=== PATIENT | male | born 1970 | race African-American/Black ===

== ENCOUNTER 2017-10-31 09:29 | Inpatient (IN) | payer OTHER ==
[~2017-10-31] VITALS: Ht 182.9 cm; Wt 105.4 kg
--- NOTE | ~2017-10-31 | HC ---
[facility] [place] [address] CONSULTATION Name: RICARDOЮЛИЯ Cueva Room #: 512-P [facility] IN M.R.#: [id number] Admission: 11/04/17 Attend Phys: Roosevelt Rowley MD Discharge: 12/04/17 Date of : 74 Report #: [id number] THIS REPORT FOR: //name// CC: Liz Rowley DATE OF SERVICE: 11/25/2017 HISTORY OF PRESENT ILLNESS: This is a 47-year-old male patient who was evaluated by me because of the CT scan finding. 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 He was transferred to [facility]. I reviewed those records. There is huge records there. The best I can tell in this patient is that they did thrombectomy and they wanted to start the patient on Coumadin on 23 of November. I tried to find out from the records and I tried to ask the patient whether atrial fibrillation was documented. Family does not know that, but the record does indicate that there was a new onset of atrial fibrillation. It looks like that they may have decided to wait for a month before starting the anticoagulation. His Coumadin was started. His INR is being done daily. His PT is only 10.5 and INR is 1. He had an imaging study. It is not certain that he was weak. The family said he was not doing well over the weekend and in fact is doing somewhat better but the staff tell me he may not have been that well. REVIEW OF SYSTEMS: Positive for hypertension as mentioned above, I had seen this patient when he came to Emergency Room and I reviewed those records in detail. He does have a history of hypertension. He was seen as far as back in 2011 for another stroke that time. This was his relevant 14-point review of system. PAST MEDICAL HISTORY: Positive for basilar artery thrombosis. SOCIAL HISTORY: He is and I talked to his . PHYSICAL EXAMINATION: NEUROLOGICAL: His examinations indicate he is alert. He is responsive. He can follow commands. His most prominent neurological examination is cerebellar sign on the right side. LUNGS: He does not appear to be in any respiratory difficulty. VITAL SIGNS: His blood pressure is 141/94, respirations 16, pulse 74 and temperature is 97.5. RADIOLOGICAL DATA: His CT was reviewed and it showed no hemorrhage but a large stroke. IMPRESSION AND RECOMMENDATIONS: This patient has a large right cerebellar stroke. It is cardioembolic. He needs anticoagulation if there is a documented [facility] [address] [place] [address] CONSULTATION Name: ЮЛИЯ SILVA V Room #: 512-P [facility]#: [id number] Admission: 11/04/17 Attend Phys: Roosevelt Rowley MD Discharge: 12/04/17 Date of : 74 Report #: [id number] atrial fibrillation. I do not have all his records but that is the recommendations of . There is no strict contraindication for anticoagulation. He is predisposed to bleed into his cerebellum. That is catastrophic and typically . [facility] people wanted him to be without anticoagulation for a month and hence we started on November 23, it has been done. I discussed that aspect with the family. From my perspective, I think we can continue to follow [facility] recommendation. I will suggest an MRI to make sure there is no finding appeared. This patient is on a very high risk of having another stroke if he is without anticoagulation and he is on some risk of having hemorrhagic cerebrovascular accident and it does not matter when anticoagulation is started. That aspect has been discussed with the family and the patient. He is willing to take that risk and from my perspective, close monitoring of PT and INR should be done, otherwise there does not appear to be any contraindication from anticoagulation, although it is a high-risk strategy but without anticoagulation. It is also high risk because he already had 2 strokes and he is predisposed for cardioembolic strokes. <ELECTRONICALLY SIGNED> By: Oemro Palomino MD 12/05/17 [id number] Omero Palomino MD /nt
--- NOTE | ~2017-10-31 | H ---
[facility] [place] [address] HISTORY AND PHYSICAL Name: ЮЛИЯ SILVA V Room #: 512-P ADM IN M.R.#: [id number] Admission: 11/04/17 Attend Phys: Roosevelt Rowley MD Discharge: Date of : 74 Report #: [id number] THIS REPORT FOR: //name// CC: Liz Rowley DATE OF SERVICE: 11/04/2017 POSTADMISSION PHYSICIAN EVALUATION HISTORY OF PRESENT ILLNESS: The patient is a 47-year-old -Slovenian male, admitted from [facility] with past history of hypertension, hyperlipidemia, prior CVA, coronary artery disease with prior cardiac stenting. He was admitted to [facility]. He had left-sided weakness, expressive aphasia, and underwent thrombectomy. He was originally noted to have slurred speech and right-sided weakness on 10/27/2017. MRI revealed interval progression of acute to early subacute bilateral cerebellar infarct and persistent small acute to subacute pontine infarcts. There was some increased associated cerebellar mass effect without herniation or hydrocephalus, development of trace subarachnoid hemorrhage along the cingulate sulcus, and multiple tiny old right cerebellar infarcts. The patient was felt to be ready for transfer for acute in-hospital inpatient rehabilitation. He has now been admitted to the acute inpatient rehabilitation [place]. Please see the full admission note dictation from the nurse practitioner, Luzmaria Bishop. This includes past medical history, habits, social history, and allergies. MEDICATIONS: Please see the medication listing. This includes vitamins, herbals, and supplements. PHYSICAL EXAMINATION: GENERAL: A 47-year-old -Slovenian male in no obvious distress, sleepy, will arouse. VITAL SIGNS: Temperature 97.9, pulse 84, respirations 20, blood pressure 106/74. No distress. HEENT: Normocephalic. There is moderate dysarthria. CHEST: Sounded clear to auscultation. CARDIAC: Regular rate and rhythm. ABDOMEN: Bowel sounds positive, nontender. GENITOURINARY AND RECTAL: Deferred. He does have some left-sided weakness more than the right side, probably a grade 3+ to 4-/5. He has some ataxia in upper and lower extremities. ASSESSMENT: 1. Ycztg-za-zflzgsow bilateral cerebellar infarcts. [facility] [address] [place] [address] HISTORY AND PHYSICAL Name: ЮЛИЯ SILVA V Room #: 512-P [facility] IN [facility].#: [id number] Admission: 11/04/17 Attend Phys: Roosevelt Rowley MD Discharge: Date of : 74 Report #: [id number] 2. Intracranial right vertebral artery occlusion, status post thrombectomy. 3. History of old right cerebellar infarcts with left-sided weakness. 4. Moderate dysarthria. 5. Hqum-mb-dxxkqazu dysphagia. 6. Atrial fibrillation. 7. Thrombocytopenia. 8. Depression. 9. Benign prostatic hypertrophy. 10. Hyperlipidemia. 11. Hypertension. PLAN: The patient has been admitted for acute in-hospital inpatient rehabilitation. Hospitalist services assisting regarding medical management. From a postadmission physician evaluation perspective, there are no relevant changes since the preadmission screening. Please see the above review of prior and current medical and functional conditions and comorbidities. Please see the patient's previous and current functional status. He has been max assist for basic transfers and short distance ambulation has been max assist. As far as risk of complications, he has the multiple noted above medical comorbidities. Initial plan of care involves the interdisciplinary acute inpatient rehabilitation program with the goal of maximizing his functional independence so that he can hopefully return back to his prior living situation. Prognosis is reasonably good with estimated length of stay probably at least 10 days to 2 weeks and likely longer as warranted. Potential barriers would include his multiple medical comorbidities and decreased functional status. <ELECTRONICALLY SIGNED> By: Roosevelt Rowley MD 11/18/17 0959 [id number] Roosevelt Rowley MD /nt
--- NOTE | ~2017-10-31 | PLAN ---
[facility] [address] [address] REHAB UNIT PLAN OF CARE Name: ЮЛИЯ SILVA V Room #: 512-P [facility] IN M.R.#: [id number] Admission: 11/04/17 Attend Phys: Roosevelt Rowley MD Discharge: Date of : 74 Report #: [id number] THIS REPORT FOR: //name// CC: Liz Rowley DATE OF SERVICE: 11/07/2017 PROGRESS NOTE AND OVERALL PLAN OF CARE SUBJECTIVE: He is in no distress. Last recorded temperature 36.7, pulse 95, respirations 18, blood pressure 114/72. No focal calf swelling. Transfers are min assist with gait max assist of 225 feet front-wheeled walker. He has auqr-md-xdwphoei comprehensive deficits with hvjrmged-hv-filcee expressive deficits, tudf-sl-rkojmzpn dysphagia. He is on mechanical soft, thin liquid diet. Upper body dressing is min assist, lower body dressing is max assist. He does have some dysarthria. ASSESSMENT: 1. Bilateral cerebellar cerebrovascular accident. 2. Intracranial right vertebral artery occlusion, status post thrombectomy. 3. History of right cerebellar cerebrovascular accident with left-sided weakness. 4. Moderate dysarthria. 5. Xorc-fs-btmnpwhf dysphagia. 6. Severe expressive aphasia. 7. Oydkkonx-qp-dtocnd memory and cognitive deficits. 8. Diplopia, right eye. 9. Atrial fibrillation. 10. Folic acid deficiency. 11. Depression. 12. Benign prostatic hypertrophy. 13. Hyperlipidemia. 14. Hypertension. 15. Acute renal insufficiency. PLAN: The overall plan of care is based on the preadmission screen, post-admission physician evaluation and information garnered from therapy assessments. 1. Estimated length of stay is going to be probably at least 2-3 weeks, likely longer pending progress. 2. Medical prognosis is reasonably good. 3. Anticipated interventions includes the interdisciplinary acute inpatient rehabilitation program with PT, OT, speech rehab nursing assisting regarding medication management, skin care prophylaxis, bowel and bladder issues and nursing education. transcription manager will be involved as well as the [address] [address] REHAB UNIT PLAN OF CARE Name: ЮЛИЯ SILVA V Room #: 512-P [facility] IN .R.#: [id number] Admission: 11/04/17 Attend Phys: Roosevelt Rowley MD Discharge: Date of : 74 Report #: [id number] interdisciplinary acute rehabilitation team and the consulting physicians. 4. Anticipated functional outcomes would be for the patient to become modified independent ideally improving with walker ambulation, ADLs, comprehension, communication. 5. Discharge destination is back to the home setting. He apparently was living between his sister's house and his 's house. 6. Expected therapy by discipline includes PT, OT and speech 1 hour per day each five days a week throughout the duration of the acute inpatient rehabilitation stay. <ELECTRONICALLY SIGNED> By: Roosevelt Rowley MD 11/18/17 0959 [id number] 1233 Roosevelt Rowley MD /jodi
--- NOTE | ~2017-10-31 | HC ---
[facility] [place] [address] CONSULTATION Name: ЮЛИЯ SILVA V Room #: 512-P [facility] IN M.R.#: [id number] Admission: 11/04/17 Attend Phys: Roosevelt Rowley MD Discharge: Date of : 74 Report #: [id number] THIS REPORT FOR: //name// CC: Liz Rowley DATE OF SERVICE: 11/08/2017 ATTENDING PHYSICIAN: Roosevelt Rowley MD EVENT MGR: Connor Johnston, PhD CLINICAL PRESENTATION: The patient is a 47-year-old -Cymra[place] male admitted initially to [facility] with an expressive aphasia. He was found to have an occlusion of the intracranial right vertebral artery. MRI revealed acute to subacute bilateral cerebellar infarcts and persistent small acute subacute pontine infarction, and associated cerebellar mass effect without herniation or hydrocephalus. The patient underwent a thrombectomy. His medical history includes hypertension, hyperlipidemia, history of a right CVA, coronary artery disease, status post stents, BPH and depression. Diagnosis on admission to rehabilitation was an acute to subacute bilateral cerebellar infarcts, intracranial right vertebral artery occlusion, status post thrombectomy, history of old right cerebellar infarction with left-sided hemiparesis, moderate dysarthria, dysphagia, atrial fibrillation, thrombocytopenia, depression, benign prosthetic hyperplasia, hyperlipidemia and hypertension. A complete description of his medical condition and history can be found in his medical record. Neuropsychological consultation was requested to provide assistance in the assessment of cognitive and emotional status and provide recommendations and services. Prior to this most recent admission, he reported living independently at home with his . The patient has six children. He reported to have obtained a GED. He has not been employed for approximately 6 years. 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 There is no reported history of alcohol/drug abuse or tobacco. TECHNIQUES UTILIZED: Clinical interview, review of medical records, staff consultation and behavioral observation, mini mental status exam 2 standard version, family interview -- and clock drawing. EXAMINATION FINDINGS: The patient was alert and cooperative with the assessment. However, he was drowsy and required frequent requests to maintain orientation. There is no report of auditory or visual hallucinations. The patient accurately described the reason for his hospitalization, although [facility] [address] [place] [address] CONSULTATION Name: ЮЛИЯ SILVA V Room #: 512-P [facility] IN .R.#: [id number] Admission: 11/04/17 Attend Phys: Roosevelt Rowley MD Discharge: Date of : 74 Report #: [id number] reduced verbal fluency is noted. The patient requires encouragement to maintain attentive and engaged presentation during the assessment. Comprehension appears within normal limits. Verbal expression is very difficult to understand, most likely from a dysarthric expression. The patient does not report difficulty with sleep. Reduced energy, tiredness and fatigue and a poor appetite is reported. Subjective depression is noted and reported by his and the patient. Performance on the MMSE 2 brief version was in the mild range of impairment with a T score of 31 and percentile rank of 3. He was 3/3 for initial registration, 4/5 for orientation to time, 5/[address] and 1/3 for immediate recall of 3 items after brief time delay and distraction. His performance deteriorated on the MMSE 2 standard version to a raw score of 21, which is a T score of 21 and less than the 1st percentile. He was 1/5 for serial sevens, 2/2 for naming, 1/1 for repetition, 3/3 for auditory comprehension. He could read and follow a single command. The patient was unable to copy a simple geometric design. He also could not write a sentence or accurately set the hands during clock drawing. Upper extremity apraxia is noted. Impairment is moderate to severe in regard to attention/concentration, visual spatial organization and executive functioning. The patient is alert and oriented. Nonverbal and visually mediated functioning is showing greater impairment and verbally mediated. DIAGNOSTIC IMPRESSION: Major neurocognitive disorder due to vascular disease, without behavior disorder -- extent to be determined, likely in the moderate to severe range. Unspecified depressive disorder. RECOMMENDATIONS: Treatment program for depression along with neurocognitive disorder is indicated. The patient will require frequent orientation to maintain level of alertness and engagement in the environment. He is currently taking an antidepressant. Verbal praise and complements about participation in therapies along with reducing as medically appropriate medications that are sedating. The patient should be encouraged to maintain environmental interaction to the extent he is capable along with utilizing his to maintain interaction with others. Thank you very much for allowing me to provide the consultation on this patient. <ELECTRONICALLY SIGNED> By: Connor Johnston, PhD 11/15/17 1223 [id number] 0116 Connor Johnston, PhD /nt
--- NOTE | ~2017-10-31 | H ---
[facility] [place] [address] HISTORY AND PHYSICAL Name: ЮЛИЯ SILVA V Room #: 512-P ADM IN M.R.#: [id number] Admission: 11/04/17 Attend Phys: Roosevelt Rowley MD Discharge: Date of : 74 Report #: [id number] THIS REPORT FOR: //name// CC: Liz Rowley DATE OF SERVICE: 11/04/2017 HISTORY OF PRESENT ILLNESS: This is a 47-year-old male who was admitted to [facility] after the patient presented with expressive aphasia at . He was found on CT head to have an occlusion of the intracranial right vertebral artery. MRI of the head revealed acute to early subacute bilateral cerebellar infarcts and persistent small acute subacute pontine infarcts, increased associated cerebellar mass effect without herniation or hydrocephalus. Also noted trace subarachnoid hemorrhage along with old right cerebellar infarcts. The patient underwent thrombectomy. He stabilized and is now admitted to acute inpatient rehabilitation unit to improve functional mobility with goal to return back to his home setting. Today, the patient reports no pain, cough, shortness of air, nausea, constipation or troubles urinating. He does have some dizziness and double vision, especially with head movements. He has old left-sided weakness from previous stroke. He continues to have moderate dysarthria and difficulty with swallow. PAST MEDICAL HISTORY: Hypertension, hyperlipidemia, history of right CVA, coronary artery disease status post stents, BPH, depression. HABITS: Quit smoking over a year ago. Alcohol on social occasions. No illicit drug use. CODE STATUS: Full code. SOCIAL HISTORY: Prior to admission the patient was independent with ADLs. He shares IADL responsibilities. He was driving. He has not worked for some time now. 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 He apparently lives between his sister's house and his 's house. His sister's house has approximately 5 stairs to enter the home and then all living on one level. His 's house has approximately 9 stairs to enter the home and then one flight of stairs to get to the bedroom and bathroom area. His 3 out of 6 kids also live at his 's home. He utilized no assistive devices premorbidly. ALLERGIES: No known drug allergies. CURRENT MEDICATIONS: Flomax 0.4 mg daily, lisinopril 10 mg daily, Celexa 10 mg daily, aspirin 81 mg daily, Protonix 20 mg daily, senna-S 1 tablet twice a day, metoprolol 12.5 mg twice a day, Lipitor 40 mg at bedtime, Tylenol 650 q.4 hours p.r.n., Zofran 4 mg q.8 hours p.r.n., meclizine 25 mg q.8 hours p.r.n., senna [address] [address] HISTORY AND PHYSICAL Name: ЮЛИЯ SILVA V Room #: 512-P [facility] IN M.R.#: [id number] Admission: 11/04/17 Attend Phys: Roosevelt Rowley MD Discharge: Date of : 74 Report #: [id number] mg daily p.r.n., Colace 100 mg twice a day p.r.n., warfarin 5 mg daily to start on 11/23/2017. REVIEW OF SYSTEMS: Remainder of his 12-point review of systems is negative except as listed in HPI. PHYSICAL EXAMINATION: VITAL SIGNS: 104/75, pulse 74, respirations 17, O2 sat 99% on room air. GENERAL: He does appear slightly lethargic; however, he is easily arousable by verbal or touch stimuli. He is in no acute distress. HEAD: Normocephalic. ENT: No sinus tenderness. He does have moderate dysarthria. LUNGS: Clear to auscultation bilaterally. No crackle, no wheeze. CARDIAC: S1, S2 intact. No murmur. ABDOMEN: Bowel sounds are positive, soft, nontender, nondistended. GENITOURINARY: No CVA tenderness. EXTREMITIES: He has slight decrease in range of motion in bilateral upper extremities, but he appears functional for ADL tasks. Functional range of motion bilateral lower extremities. His left side is weaker greater than the right side. He is able to lift antigravity bilateral lower extremities. Negative Homans sign. No tenderness to palpation. Ataxia upper and lower extremities as well as truncal. Dependent for lower extremity dressing, mod assist for bed mobility, stand-pivot transfer max assist from bed to wheelchair, ambulated 25 feet with front-wheeled walker and max assist. NEUROLOGIC: He is oriented x 3; however, he does have delayed verbal response and recall of events, pleasant affect. SKIN: Warm, dry, intact. ASSESSMENT: 1. Acute to subacute bilateral cerebellar infarcts. 2. Intracranial right vertebral artery occlusion, status post thrombectomy. 3. History of old right cerebellar infarcts with left-sided weakness. 4. Moderate dysarthria. 5. Omds-zc-kbawodvu dysphagia. 6. Atrial fibrillation. 7. Thrombocytopenia. 8. Depression. 9. Benign prostatic hyperplasia. 10. Hyperlipidemia. 11. Hypertension. PLAN: The patient has been admitted to acute inpatient rehabilitation unit for physical, occupational and speech therapies. He will have Hospitalist Services manage his acute medical issues. Orders from have Coumadin to start on 11/23/2017. Hospitalists are adding heparin until that time. Hospitalists have placed parameters for his hypertension medications as he is currently [facility] [address] [place] [address] HISTORY AND PHYSICAL Name: RICARDORCIKYSENDY Cueva Room #: 512-P ADM IN .R.#: [id number] Admission: 11/04/17 Attend Phys: Roosevelt Rowley MD Discharge: Date of : 74 Report #: [id number] hypotensive. He will have lab work in the morning. He will have SCDs for further DVT prophylaxis. He will have team conference next Friday. Social work services to assist with discharge planning. We will add an eye patch to the right eye for diplopia. Please see orders. <ELECTRONICALLY SIGNED> By: BAILEY Concepcion 11/17/17 1136 1546 [id number] BAILEY Concepcion /nt
[~2017-10-31 09:29] MED LIST: ACETAMINOPHEN650 M5 PO; ANTIVERT25 MG PO; ASPIRIN325 PO; ASPIRIN81 M2 PO; CARVEDILOL25 MG PO; CELEXA 10 MG TA10 M1 PO; COLACE 100 MG100 MG PO; COREG CR20 MG; CRESTOR40 MG PO; FISH OIL SOFTG1 EACH PO; HYDROCHLOROTHIA25 M1 PO; KLOR-CON 10 ER10 MEQ PO; LISINOPRIL10 MG PO; LISINOPRIL20 MG PO; LISINOPRIL40 MG PO; NAMENDA 5 MG TAB5 M1 PO; NORVASC 5 MG TAB5 MG PO; UNKNOWN CHOLESTEROL; ZOFRAN ODT4 MG PO
[2017-10-31] MEDS ORDERED: BISACODYL SUPP10 MG RECTAL (12:53)
[2017-10-31] MEDS ORDERED: HEPARIN 5,5000 UNIT3 IV (12:56)
[2017-10-31] MEDS ORDERED: HEPARIN 5,5000 UNIT3 SUBQ (12:57)
[2017-10-31] MEDS ORDERED: LOPRESSOR25 PO ×2 (12:58→12:59)
[2017-10-31] MEDS ORDERED: MILK OF MA400 MG/5 M PO (13:01)
[2017-10-31] MEDS ORDERED: SENOKOT-S TABL1 EACH PO (13:02)
[2017-11-04] MEDS ORDERED: CHILDREN'S ASPI81 M1 PO (10:57)
[2017-11-04] MEDS ORDERED: FLOMAX0.4 MG PO (11:03)
[2017-11-04] MEDS ORDERED: COUMADIN 5 MG TA5 M1 PO (11:06)
[2017-11-04] MEDS ORDERED: ANTIVERT25 MG PO (11:10)
[2017-11-04 11:24] VITALS: BP 104/75
[2017-11-04 16:36] VITALS: BP 111/75
[2017-11-04 19:30] VITALS: BP 126/80
[2017-11-05 04:30] LABS: CALCIUM 9.3 mg/dL (8.5-10.1); CREATININE 1.6 mg/dL (0.7-1.3); POTASSIUM 3.9 mmol/L (3.5-5.1)
[2017-11-05 05:20] LABS: HEMATOCRIT 41.3 % (42.0-52.0); HEMOGLOBIN 13.7 gm/dL (14.0-18.0); MCHC 33.3 g/dL (28.0-37.0); RBC 4.59 mil/uL (4.50-6.00); RDW 14.5 % (10.5-14.5); WBC 9.2 thou/uL (4.0-11.0)
[2017-11-05 08:00] VITALS: BP 150/114
[2017-11-05 15:57] LABS: FOLIC ACID 5.1 ng/mL (8.6-58.9)
[2017-11-05 19:27] VITALS: BP 92/51
[2017-11-06 08:37] VITALS: BP 106/74
[2017-11-06 19:50] VITALS: BP 114/72
[2017-11-07 06:41] LABS: CALCIUM 9.6 mg/dL (8.5-10.1); CREATININE 1.7 mg/dL (0.7-1.3); POTASSIUM 4.4 mmol/L (3.5-5.1)
[2017-11-07 19:30] VITALS: BP 117/81
[2017-11-08 01:10] LABS: GLYCOHEMOGLOBIN (HGB A1C) 6.5 % (4.8-5.6)
[2017-11-08 07:39] VITALS: BP 128/86
[2017-11-08 20:00] VITALS: BP 133/94
[2017-11-09 08:00] VITALS: BP 99/66
[2017-11-09 13:53] VITALS: BP 138/67
[2017-11-09 20:30] VITALS: BP 122/85
[2017-11-10 08:20] VITALS: BP 117/84
[2017-11-10 19:24] VITALS: BP 120/87
[2017-11-10 19:30] VITALS: BP 162/61
[2017-11-11 04:22] LABS: CALCIUM 9.3 mg/dL (8.5-10.1); CREATININE 1.7 mg/dL (0.7-1.3); MAGNESIUM 1.9 mg/dL (1.8-2.4); POTASSIUM 3.7 mmol/L (3.5-5.1)
[2017-11-11 04:28] LABS: ABSOLUTE NEUTROPHILS 3.6 thou/uL (1.4-8.2); EOSINOPHILS 1.2 % (0.0-3.0); HEMATOCRIT 38.5 % (42.0-52.0); HEMOGLOBIN 13.1 gm/dL (14.0-18.0); LYMPHOCYTES 43.5 % (24.0-44.0); MCH 30.7 pg (26.0-34.0); MCHC 34.2 g/dL (28.0-37.0); MCV 89.8 fL (80.0-100.0); MONOCYTES 7.4 % (1.0-8.0); PLATELET COUNT 271 thou/uL (150-400); POLYS 46.9 % (36.0-66.0); RBC 4.28 mil/uL (4.50-6.00); RDW 14.1 % (10.5-14.5); WBC 7.6 thou/uL (4.0-11.0)
[2017-11-11 08:00] VITALS: BP 112/76
[2017-11-11 19:25] VITALS: BP 124/77
[2017-11-12 07:30] VITALS: BP 130/86
[2017-11-12 19:40] VITALS: BP 113/80
[2017-11-13 10:23] VITALS: BP 124/88
[2017-11-13 19:40] VITALS: BP 125/83
[2017-11-14 08:35] VITALS: BP 130/85
[2017-11-14 20:10] VITALS: BP 131/93
[2017-11-15 09:05] VITALS: BP 117/81
[2017-11-15 19:35] VITALS: BP 118/87
[2017-11-16 08:45] VITALS: BP 130/97
[2017-11-16 10:55] VITALS: BP 118/87
[2017-11-16 19:33] VITALS: BP 136/95
[2017-11-17 05:41] LABS: ABSOLUTE NEUTROPHILS 3.5 thou/uL (1.4-8.2); BASOPHILS 0.7 % (0.0-2.0); EOSINOPHILS 1.4 % (0.0-3.0); HEMATOCRIT 38.4 % (42.0-52.0); HEMOGLOBIN 12.8 gm/dL (14.0-18.0); LYMPHOCYTES 42.6 % (24.0-44.0); MCH 29.7 pg (26.0-34.0); MCHC 33.4 g/dL (28.0-37.0); MCV 88.9 fL (80.0-100.0); MONOCYTES 8.7 % (1.0-8.0); PLATELET COUNT 208 thou/uL (150-400); POLYS 46.6 % (36.0-66.0); RBC 4.32 mil/uL (4.50-6.00); WBC 7.4 thou/uL (4.0-11.0)
[2017-11-17 05:54] LABS: CALCIUM 9.2 mg/dL (8.5-10.1); CREATININE 1.5 mg/dL (0.7-1.3); POTASSIUM 3.8 mmol/L (3.5-5.1)
[2017-11-17 08:20] VITALS: BP 131/94
[2017-11-17 20:18] VITALS: BP 130/92
[2017-11-18 08:30] VITALS: BP 137/92
[2017-11-18 19:35] VITALS: BP 139/97
[2017-11-19 07:30] VITALS: BP 154/103
[2017-11-19 14:45] VITALS: BP 132/97
[2017-11-19 19:47] VITALS: BP 147/94
[2017-11-20 08:21] VITALS: BP 127/93
[2017-11-20 20:00] VITALS: BP 150/92
[2017-11-21 08:52] VITALS: BP 136/88
[2017-11-21 19:20] VITALS: BP 129/85
[2017-11-22 08:20] VITALS: BP 126/88
[2017-11-22 16:36] LABS: HEMATOCRIT 39.2 % (42.0-52.0); HEMOGLOBIN 13.1 gm/dL (14.0-18.0); MCHC 33.4 g/dL (28.0-37.0); MCV 89.8 fL (80.0-100.0); RBC 4.37 mil/uL (4.50-6.00); RDW 14.4 % (10.5-14.5); WBC 6.7 thou/uL (4.0-11.0)
[2017-11-22 16:54] LABS: ALBUMIN 3.3 g/dL (3.4-5.0); CALCIUM 9.1 mg/dL (8.5-10.1); CREATININE 1.7 mg/dL (0.7-1.3); TOTAL BILIRUBIN 0.2 mg/dL (<0.1-1.0); TOTAL PROTEIN 7.2 g/dL (6.4-8.2)
[2017-11-23 05:58] LABS: HEMATOCRIT 38.6 % (42.0-52.0); MCH 30.3 pg (26.0-34.0); MCHC 33.6 g/dL (28.0-37.0); MCV 90.4 fL (80.0-100.0); RBC 4.28 mil/uL (4.50-6.00); RDW 14.3 % (10.5-14.5)
[2017-11-23 06:08] LABS: PROTIME 10.1 Seconds (9.3-11.4)
[2017-11-23 10:05] VITALS: BP 152/100
[2017-11-23 20:48] VITALS: BP 143/92
[2017-11-24 06:22] LABS: ABSOLUTE NEUTROPHILS 3.4 thou/uL (1.4-8.2); BASOPHILS 0.9 % (0.0-2.0); EOSINOPHILS 1.6 % (0.0-3.0); HEMATOCRIT 38.9 % (42.0-52.0); HEMOGLOBIN 12.9 gm/dL (14.0-18.0); LYMPHOCYTES 41.1 % (24.0-44.0); MCH 29.9 pg (26.0-34.0); MCHC 33.1 g/dL (28.0-37.0); MCV 90.3 fL (80.0-100.0); MONOCYTES 8.3 % (1.0-8.0); PLATELET COUNT 164 thou/uL (150-400); POLYS 48.1 % (36.0-66.0); RBC 4.31 mil/uL (4.50-6.00); RDW 14.4 % (10.5-14.5); WBC 7.1 thou/uL (4.0-11.0)
[2017-11-24 06:34] LABS: CALCIUM 8.8 mg/dL (8.5-10.1); CREATININE 1.5 mg/dL (0.7-1.3); MAGNESIUM 1.8 mg/dL (1.8-2.4); POTASSIUM 3.8 mmol/L (3.5-5.1)
[2017-11-24 07:20] VITALS: BP 135/91
[2017-11-24 19:30] VITALS: BP 130/88
[2017-11-25 05:52] LABS: PROTIME 10.5 Seconds (9.3-11.4)
[2017-11-25 07:30] VITALS: BP 141/94
[2017-11-25 19:25] VITALS: BP 163/116
[2017-11-26 04:00] VITALS: BP 126/84
[2017-11-26 05:57] LABS: INR 1.2; PROTIME 11.8 Seconds (9.3-11.4)
[2017-11-26 08:15] VITALS: BP 132/100
[2017-11-26 19:05] VITALS: BP 144/102
[2017-11-27 05:26] LABS: INR 1.3; PROTIME 13.4 Seconds (9.3-11.4)
[2017-11-27 08:25] VITALS: BP 143/106
[2017-11-27 19:20] VITALS: BP 151/100
[2017-11-28 02:03] VITALS: BP 168/87
[2017-11-28 05:45] LABS: INR 1.8; PROTIME 17.9 Seconds (9.3-11.4)
[2017-11-28 19:25] VITALS: BP 135/97
[2017-11-29 03:28] LABS: ABSOLUTE NEUTROPHILS 2.9 thou/uL (1.4-8.2); BASOPHILS 1.8 % (0.0-2.0); EOSINOPHILS 1.5 % (0.0-3.0); HEMATOCRIT 36.8 % (42.0-52.0); HEMOGLOBIN 12.3 gm/dL (14.0-18.0); LYMPHOCYTES 41.7 % (24.0-44.0); MCH 29.7 pg (26.0-34.0); MCHC 33.4 g/dL (28.0-37.0); MCV 89.1 fL (80.0-100.0); MONOCYTES 8.3 % (1.0-8.0); PLATELET COUNT 155 thou/uL (150-400); POLYS 46.7 % (36.0-66.0); RBC 4.14 mil/uL (4.50-6.00); WBC 6.3 thou/uL (4.0-11.0)
[2017-11-29 03:37] LABS: CALCIUM 8.8 mg/dL (8.5-10.1); CREATININE 1.5 mg/dL (0.7-1.3); MAGNESIUM 1.9 mg/dL (1.8-2.4); POTASSIUM 3.5 mmol/L (3.5-5.1)
[2017-11-29 03:39] LABS: INR 2.3; PROTIME 23.7 Seconds (9.3-11.4)
[2017-11-29 08:17] VITALS: BP 156/108
[2017-11-29 19:25] VITALS: BP 160/113
[2017-11-30 08:00] VITALS: BP 141/97
[2017-11-30 22:16] VITALS: BP 139/87
[2017-12-01 08:10] LABS: PROTIME 35.7 Seconds (9.3-11.4)
[2017-12-01 08:11] LABS: INR 3.6
[2017-12-01 08:46] VITALS: BP 198/112
[2017-12-01 20:10] VITALS: BP 117/78
[2017-12-02 07:12] LABS: INR 3.4; PROTIME 34.5 Seconds (9.3-11.4)
[2017-12-02 08:00] VITALS: BP 149/84
[2017-12-02 19:40] VITALS: BP 153/96
[2017-12-03 06:18] LABS: INR 3.3; PROTIME 32.8 Seconds (9.3-11.4)
[2017-12-03 08:00] VITALS: BP 168/105
[2017-12-03 14:58] VITALS: BP 165/105
[2017-12-03 19:25] VITALS: BP 173/83
[2017-12-04 07:41] LABS: INR 2.6; PROTIME 26.2 Seconds (9.3-11.4)
[2017-12-04 09:17] VITALS: BP 177/113
[2017-12-04] MEDS ORDERED: COUMADIN 5 MG TA5 M1 PO (09:53)
[2017-12-04] MEDS ORDERED: FOLIC ACID1 MG PO (09:53)
[2017-12-04] MEDS ORDERED: LISINOPRIL10 MG PO (09:53)
[2017-12-04] MEDS ORDERED: PROTONIX 20 MG20 M1 PO (09:53)
[2017-12-04] MEDS ORDERED: CELEXA 10 MG TA10 M1 PO (09:53)
[2017-12-04] MEDS ORDERED: FLOMAX0.4 MG PO (09:53)
[2017-12-04 11:25] VITALS: BP 165/105
[2017-12-04] MEDS ORDERED: LOPRESSOR25 PO (11:51)
== END 2017-12-04 12:05 | disposition home health service (06) | DRG 64 ==
LOC: ENTRNSPT 12-04 12:04 → EDTRNSPTSTS 12-04 12:13
PROVIDERS: Hospitalist; Internal Medicine; Nurse Practitioner; Nurse Practitioner Family; Physical Medicine & Rehabilitation
DX: I63.211 Cerebral infarction due to unspecified occlusion or stenosis of right vertebral artery (principal); I60.8 Other nontraumatic subarachnoid hemorrhage; N17.9 Acute kidney failure, unspecified; G81.92 Hemiplegia, unspecified affecting left dominant side; H53.2 Diplopia; E78.5 Hyperlipidemia, unspecified; I25.10 Atherosclerotic heart disease of native coronary artery without angina pectoris; N40.0 Benign prostatic hyperplasia without lower urinary tract symptoms; F32.9 Major depressive disorder, single episode, unspecified; R47.1 Dysarthria and anarthria; R13.10 Dysphagia, unspecified; I48.91 Unspecified atrial fibrillation; D69.6 Thrombocytopenia, unspecified; R47.01 Aphasia; E53.8 Deficiency of other specified B group vitamins; F01.50 Vascular dementia, unspecified severity, without behavioral disturbance, psychotic disturbance, mood disturbance, and anxiety; Z80.8 Family history of malignant neoplasm of other organs or systems; E11.9 Type 2 diabetes mellitus without complications; I12.9 Hypertensive chronic kidney disease with stage 1 through stage 4 chronic kidney disease, or unspecified chronic kidney disease; N18.3 Chronic kidney disease, stage 3 (moderate); Z53.29 Procedure and treatment not carried out because of patient's decision for other reasons; Z95.5 Presence of coronary angioplasty implant and graft; Z87.891 Personal history of nicotine dependence; Z79.899 Other long term (current) drug therapy; Z83.3 Family history of diabetes mellitus
CPT/HCPCS: 10112